=== PATIENT | female | born 1950 | race Caucasian/White ===

== ENCOUNTER 2019-03-20 14:40 | Outpatient (CLI) | payer MEDICARE, SELFPAY ==
--- NOTE | ~2019-03-20 | XR_ITS ---
EXAMINATION: XR chest 2V 03/20/2019 17:17 INDICATION: Cough and shortness of breath PROCEDURE: 2 view chest COMPARISON: No prior studies for comparison. FINDINGS: The lungs are clear. The cardiomediastinal silhouette is within normal limits. There are no pleural effusions. There is no pneumothorax suspected. IMPRESSION: 1: NO ACUTE CARDIOPULMONARY DISEASE. Reviewed, dictated and finalized at [facility]. Reviewed, dictated and finalized at location [facility]. 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
== END 2019-03-20 14:41 | disposition home or self-care (01) ==
PROVIDERS: PCP Family Medicine; Visit Provider Physician Assistant
DX: R06.02 Shortness of breath (principal); R05 Cough
CPT/HCPCS: 71046

== ENCOUNTER → 2020-12-11 14:02 | Outpatient (CLI) | payer MEDICARE, SELFPAY ==
--- NOTE | ~2020-12-11 | XR_ITS ---
EXAMINATION: XR chest 2V 12/11/2020 14:28 INDICATION: Mild intermittent asthma PROCEDURE: 2 view chest COMPARISON: 03/20/2019 FINDINGS: The lungs are clear. The cardiomediastinal silhouette is within normal limits. There are no pleural effusions. There is no pneumothorax suspected. IMPRESSION: 1: NO ACUTE CARDIOPULMONARY DISEASE. Reviewed, dictated and finalized at location [facility].
== END ==
PROVIDERS: PCP Family Medicine; Visit Provider Internal Medicine
DX: J45.20 Mild intermittent asthma, uncomplicated (principal)
CPT/HCPCS: 71046

== ENCOUNTER 2020-12-13 17:30 | Emergency (ER) | payer MEDICARE, SELFPAY ==
[2020-12-13 17:34] VITALS: BP 157/85; PULSE 77; RESP 16; TEMP 36.6; O2SAT 96
[2020-12-13] MEDS: TETANUS,DIPHTHERIA,AC PERTUSSIS ADULT (0.5 ML) BOOSTRIX IM (19:11)
--- NOTE | 2020-12-13 20:09 | ED.GENADULT ---
HPI - General Adult General Chief complaint: Extremity Problem,Nontraumatic Stated complaint: finger injury Time Seen by Provider: 12/13/20 19:01 Source: patient and RN notes reviewed Mode of arrival: ambulatory Limitations: no limitations History of Present Illness HPI narrative: Patient 70-year-old female who presents with skin avulsion to the right ring finger distal tip was using a slicer when she cut the finger patient notes her tetanus is not up-to-date notes burning mild ache and pain worse with touch denies other injuries or complaints presents nondistressed Related Data Allergies Allergy/AdvReac Type Severity Reaction Status Date / Time No Known Allergies Allergy Unverified 10/02/20 09:11 Review of Systems Review of Systems: CONSTITUTIONAL: Denies fever, chills, or sweats. SKIN: Positive for skin avulsion MUSCULOSKELETAL: Denies decreased range of motion or strength NEUROLOGIC: Denies numbness or tingling PSYCHIATRIC: Denies anxiety or depression. PMFSH Past Medical History Medical History IFG (impaired fasting glucose) Wellness examination Surgical History Surgical History History of primary section History of sinus surgery Status post total knee replacement, left Family History Family History Mother Hypertension Sibling Hypertension Father Family history of malignant neoplasm Social History Social History Smoking status: Never smoker Second hand tobacco smoke exposure: No Alcohol intake: current Alcohol use details: monthly Substance use: never Substance use type: does not use Gender identity (if verbalized by the patient): Female Sexual Orientation (if Verbalized by the Patient): Straight or Heterosexual Exam Narrative: GENERAL: Well-appearing, well-nourished, and in no acute distress. HEAD: Normocephalic, atraumatic. EYES: PERRLA and EOMI. ENT: Nares clear, no rhinorrhea or epistaxis. Mucous membranes moist. EXTREMITIES: Normal range of motion. No edema. SKIN: Warm, dry, no rash. Half centimeter skin avulsion distal tip of the right ring finger NEURO: No focal deficits. Alert and oriented x3. Neurovascularly intact PSYCH: Normal mood and affect. Course Course Emergency Course: Patient had hemostasis achieved in the emergency department tetanus updated will follow up with primary care felt appropriate for outpatient reevaluation provided with reasons to return Vital Signs Vital signs: Vital Signs Temperature 97.9 F 12/13/20 17:34 Pulse Rate 77 12/13/20 17:34 Respiratory Rate 16 12/13/20 17:34 Blood Pressure 157/85 H 12/13/20 17:34 Pulse Oximetry 96 12/13/20 17:34 Temperature 97.9 F 12/13/20 17:34 Pulse Rate 77 12/13/20 17:34 Respiratory Rate 16 12/13/20 17:34 Blood Pressure 157/85 H 12/13/20 17:34 Pulse Oximetry 96 12/13/20 17:34 Procedures Other Procedure Procedure 1: Other Procedure: Patient's wound was dressed with LAT and Surgicel with 4 x 4 and Coban placed. Hemostasis achieved neurovascularly intact pre and post procedure Medical Decision Making MDM Narrative Medical decision making narrative: Patients injury or pain is consistent with musculoskeletal etiology. No signs of neurological or vascular compromise on exam. Compartments and tisues are soft without signs of compartment syndrome. Pain is felt appropriate for further evaluation on an outpatient basis. Vital Signs Vital Signs: Vital Signs Temperature 97.9 F 12/13/20 17:34 Pulse Rate 77 12/13/20 17:34 Respiratory Rate 16 12/13/20 17:34 Blood Pressure 157/85 H 12/13/20 17:34 Pulse Oximetry 96 12/13/20 17:34 Temperature 97.9 F 12/13/20 17:34 Pulse Rate 77 12/13/20 17:34 Respiratory Rate 16
== END 2020-12-13 20:27 | disposition home or self-care (01) ==
PROVIDERS: Emergency Provider Emergency Medicine; PCP Family Medicine
DX: S61.204A Unspecified open wound of right ring finger without damage to nail, initial encounter (principal); Z23 Encounter for immunization; Z96.652 Presence of left artificial knee joint; W27.4XXA Contact with kitchen utensil, initial encounter; Y93.G1 Activity, food preparation and clean up
CPT/HCPCS: 90471; 90715; 99282

== ENCOUNTER 2024-11-13 09:50 | Outpatient (CLI) | payer MEDICARE, SELFPAY ==
--- NOTE | ~2024-11-13 | DEXA_ITS ---
Bone Density Report Name: PEDRO HAIDER Age: 74 Sex: Female Ethnicity: White Date of : 1950 Indication: postmenopausal; screening for osteoporosis; asthma or emphysema; Referring Provider: Cain Manjarrez Study: Bone densitometry was performed. Exam Date: November 13, 2024 Accession number: [id number] Bone Density: Region BMD T-score Z-score Classification AP Spine(L1-L4) 0.901 -1.3 1.0 Osteopenia Femoral Neck (Left) 0.629 -2.0 0.1 Osteopenia Total Hip (Left) 0.702 -2.0 -0.2 Osteopenia Femoral Neck (Right) 0.533 -2.8 -0.8 Osteoporosis Total Hip (Right) 0.657 -2.3 -0.6 Osteopenia Total Hip Mean 0.680 -2.2 -0.4 Osteopenia World Health Organization criteria for BMD impression classify patients as: Normal (T-score at or above -1.0), Osteopenia (T-score between -1.0 and -2.5), or Osteoporosis (T-score at or below -2.5). 10-year Fracture Risk: FRAX not reported because: Some T-score for Spine Total or Hip Total or Femoral Neck at or below -2.5 Clinical Information Provided by Patient: Has the following medical conditions: Asthma or Emphysema Patient maximum height was 61 Menopause Age: 52 No regular weight bearing exercise Drinks caffeinated beverages Onset of menses at age 14 Number of children 1 Impression: The patient has osteoporosis, based on the Right Femoral Neck T-score. Discussion: INCREASED RISK OF FRACTURE. BONE DENSITY IS UNDESIRABLY LOW AT ONE OR MORE SKELETAL SITES, CONSISTENT WITH POSTMENOPAUSAL OSTEOPOROSIS. This patient's lowest T-score meets the World Health Organization's (WHO) criteria for osteoporosis at one or more sites (T-score -2.5 or below). In untreated patients, the risk of osteoporotic fracture increases approximately two-fold for each 1.0 SD decrease in T-score. Low bone density is not the only risk factor for fracture; also consider factors such as patient's age, frailty or poor health, risk of falling, risk of injury, previous osteoporotic fracture, family history of osteoporosis, cigarette smoking, low body weight, etc. Not everyone with low bone mineral density has osteoporosis; osteomalacia and other metabolic bone disorders should also be considered. Patients who have osteoporosis should be evaluated for specific diseases and conditions (secondary causes) that may cause or contribute to bone loss. The [place] [employer] (AACE) and National Osteoporosis Foundation (NOF) recommend pharmacologic intervention for all postmenopausal women whose T-score is in this range. The patient should follow a healthful lifestyle (good nutrition with adequate calcium and vitamin D, and appropriate weight-bearing exercise). Follow-Up: Consider a repeat BMD and Vertebral Fracture Assessment (VFA) exam in 2 years or sooner if medically necessary, to reassess this patient's status. Reported by: JORDAN on 11/13/2024 10:13:00 AM. Reviewed, dictated and finalized at location A.
== END 2024-11-13 09:51 | disposition home or self-care (01) ==
LOC: MICIMG 09:50
PROVIDERS: PCP Family Medicine; Visit Provider Family Medicine
DX: Z78.0 Asymptomatic menopausal state (principal); M85.88 Other specified disorders of bone density and structure, other site; M85.852 Other specified disorders of bone density and structure, left thigh; M85.851 Other specified disorders of bone density and structure, right thigh; M81.0 Age-related osteoporosis without current pathological fracture
CPT/HCPCS: 77080